=== PATIENT | female | born 1965 | race Caucasian/White ===

== ENCOUNTER → 2017-10-25 | Outpatient (CLI) | payer OTHER ==
[~2017-10-25] VITALS: Ht 167.6 cm; Wt 170.4 kg
[~2017-10-25] MED LIST: AMLO10 PO; CHLORHEXIDINE GLUCONATE 2 % 1 PACK (2 CLOTHS) TOPICAL PRN; DIPH25TA2 PO; DO NOT ADM ANY ANTICOAGULANT DRUGS PRN; LACTATED RINGER'S 1000 ML IV PRN; LOSA50TA PO; METOPROLOL TARTRATE 25 MG TAB PO PRN; POVIDONE IODINE 5% (ANTISEPSIS KIT) 4 APPLICATIONS EACH NARE PRN; SODIUM CHLORID 0.9% 500 ML IV PRN
[2017-10-25 11:02] LABS: AUTOMATED NEUTROPHIL # 5.9 TH/MM3 (1.8-7.7); BASOPHIL # 0.1 TH/MM3 (0-0.2); BASOPHIL % 0.6 % (0.0-2.0); EOSINOPHIL # 0.2 TH/MM3 (0-0.4); HEMATOCRIT 42.7 % (35.0-46.0); HEMO FLAGS DIFF FINAL; LYMPH % 27.5 % (9.0-44.0); LYMPHOCYTE # 2.6 TH/MM3 (1.0-4.8); MEAN CELL VOLUME 88.5 FL (80.0-100.0); MEAN CORPUSCULAR HGB CONC 32.8 % (32.0-36.0); MONO % 8.3 % (0.0-8.0); NEUT % 61.6 % (16.0-70.0); PLATELET COUNT 318 TH/MM3 (150-450); RED BLOOD COUNT 4.83 MIL/MM3 (4.00-5.30); RED CELL DISTRIBUTION WIDTH 14.2 % (11.6-17.2); WHITE BLOOD COUNT 9.6 TH/MM3 (4.0-11.0)
[2017-10-25 11:26] LABS: BICARBONATE 29.2 MEQ/L (21.0-32.0)
--- NOTE | 2017-10-25 13:34 | EKG ---
Date Performed: 10/25/2017 Time Performed: 10:29:04 PTAGE: 51 years EKG: Sinus rhythm NONSPECIFIC T-WAVE ABNORMALITY BORDERLINE ECG NO PREVIOUS TRACING DOCTOR: Alonzo De La Rosa Interpretating Date/Time 10/25/2017 13:33:42
--- NOTE | 2017-10-25 13:37 | GIPROC ---
[facility] [address] [facility]. [facility] [place], [id number] EGD PROCEDURE REPORT EXAM DATE: 10/25/2017 PATIENT NAME: Grace Dave MR #: [id number] BIRTHDATE: 1965 ATTENDING: Ulises Dorantes MD ORDER #: [id number] SEWAGE DISPOSAL WORKER: Diana Lakhani and Tim Sanchez STATUS: outpatient INDICATIONS: The patient is a 51 yr old female here for an EGD due to heartburn PROCEDURE PERFORMED: EGD w/ biopsy MEDICATIONS: None and Per Anesthesia. TOPICAL ANESTHETIC: none CONSENT: The patient understands the risks and benefits of the procedure and understands that these risks include, but are not limited to: sedation, allergic reaction, infection, perforation and/or bleeding. Alternative means of evaluation and treatment include, among others: physical exam, x-rays, and/or surgical intervention. The patient elects to proceed with this endoscopic procedure. medical equipment was checked for proper function. Hand hygiene and appropriate measures for infection prevention was taken. After the risks, benefits and alternatives of the procedure were thoroughly explained, Informed consent was verified, confirmed and timeout was successfully executed by the treatment team. The patient was anesthetized with topical anesthesia and the [employer] [id number] endoscope was introduced through the mouth and advanced to the second portion of the duodenum. Biopsy of antrum for gastritis and H. pylori. Retroflexed views revealed no abnormalities The gastroscope was then slowly withdrawn and removed. STOMACH: There was mild gastritis in the gastric body. ADVERSE EVENTS: There were no complications. IMPRESSIONS: 1. There was mild gastritis in the gastric body 2. Retroflexed views revealed no abnormalities RECOMMENDATIONS: Await biopsy results. Biopsy results will not be ready for 7-10 days. If you don't hear from us in two weeks, call our office for biopsy results. PATIENT CONDITION: fair DISPOSITION: Home REPEAT EXAM: NONE Ulises Dorantes MD eSigned: Ulises Dorantes MD 10/25/2017 1:36 PM cc: Ulises Dorantes MD
[2017-10-25 15:00] VITALS: BP 154/90; PULSE 89; RESP 20; TEMP 98.7; O2SAT 98
== END ==
LOC: HSDC 09:57
PROVIDERS: ATTEND Surgery
DX: R12 Heartburn (principal); K29.70 Gastritis, unspecified, without bleeding; R94.31 Abnormal electrocardiogram [ECG] [EKG]
CPT/HCPCS: 80048; 85025; 88305; 88312; 93005

== ENCOUNTER 2018-01-16 05:28 | Inpatient (IN) | payer SELFPAY ==
[~2018-01-16] VITALS: Ht 167.6 cm; Wt 168.9 kg
[~2018-01-16 05:28] MED LIST changes: -CHLORHEXIDINE GLUCONATE 2 % 1 PACK (2 CLOTHS) TOPICAL PRN; -DO NOT ADM ANY ANTICOAGULANT DRUGS PRN; -LACTATED RINGER'S 1000 ML IV PRN; -METOPROLOL TARTRATE 25 MG TAB PO PRN; -POVIDONE IODINE 5% (ANTISEPSIS KIT) 4 APPLICATIONS EACH NARE PRN; -SODIUM CHLORID 0.9% 500 ML IV PRN
[2018-01-16] MEDS ORDERED: POVIDONE IODINE 5% (ANTISEPSIS KIT) 4 APPLICATIONS EACH NARE PRN (06:15)
[2018-01-16] MEDS ORDERED: SCOPOLAMINE 1.5 MG PATCH T-DERMAL SCH (06:15)
[2018-01-16] MEDS ORDERED: ceFAZolin 2 GM PREMIX 50 ML IV SCH (06:15)
[2018-01-16] MEDS ORDERED: APREPITANT 40 MG CAP PO SCH (06:15)
[2018-01-16] MEDS ORDERED: ONDANSETRON HCL 4 MG/2 ML VIAL IV PUSH SCH (06:15)
[2018-01-16] MEDS ORDERED: SODIUM CHLORID 0.9% 500 ML IV PRN (06:15)
[2018-01-16] MEDS ORDERED: CHLORHEXIDINE GLUCONATE 2 % 1 PACK (2 CLOTHS) TOPICAL PRN (06:15)
[2018-01-16] MEDS ORDERED: METOPROLOL TARTRATE 25 MG TAB PO PRN (06:15)
[2018-01-16] MEDS ORDERED: LACTATED RINGER'S 1000 ML IV PRN (06:15)
[2018-01-16] MEDS ORDERED: ACETAMINOPHEN 1000 MG/100 ML 100 ML IV SCH (06:15)
[2018-01-16] MEDS ORDERED: metroNIDAZOLE 500 MG INJ 100 ML IV ONE (09:45)
[2018-01-16] MEDS ORDERED: BUPIVACAINE/EPINEPHRINE 0.25% 50 ML VIAL ONE (09:48)
--- NOTE | 2018-01-16 10:27 | HHI.PR ---
Immediate Post Op Note Procedure Date: Jan 16, 2018 Pre Op Diagnosis: morbid obesity, bmi 60, prasanth, htn, ra Post Op Diagnosis: same Surgeon: Ulises Dorantes MD [employer] Professor(s): Dr. Be Procedure: lap sleeve gastrectomy, 1st stage ds Findings: no leak Complications: none Specimen(s) removed: none Estimated blood loss: 5cc Anesthesia: General Drains: None Patient to: PACU Patient Condition: Good Ulises Dorantes MD Jan 16, 2018 10:27
[2018-01-16] MEDS ORDERED: diphenhydrAMINE HCL ELIXIR 12.5 MG/5 ML CUP PO PRN (11:45)
[2018-01-16] MEDS ORDERED: ONDANSETRON HCL 4 MG/2 ML VIAL IV PUSH PRN (11:45)
[2018-01-16] MEDS ORDERED: diphenhydrAMINE HCL 50 MG/ML VIAL IV PUSH PRN (11:45)
[2018-01-16] MEDS ORDERED: ENALAPRILAT 1.25 MG/ML VIAL IV PUSH PRN (11:45)
[2018-01-16] MEDS ORDERED: ACETAMINOPHEN 325MG/HYDROcodone 7.5MG/15ML UDC PO PRN ×2 (11:45)
[2018-01-16] MEDS ORDERED: SODIUM CHLORIDE 0.9% FLUSH 10 ML FLUSH IV FLUSH PRN (11:45)
[2018-01-16] MEDS ORDERED: Post-op Orders (for Pharmacy) OTHER ONE (11:45)
[2018-01-16] MEDS ORDERED: ePHEDrine/NS 25 MG/5 ML SYRINGE IV ONE (12:00)
[2018-01-16] MEDS ORDERED: ONDANSETRON HCL 4 MG/2 ML VIAL IV ONE (12:00)
[2018-01-16] MEDS ORDERED: DEXAMETHASONE SOD PHOS 4 MG/ML VIAL IV ONE (12:00)
[2018-01-16] MEDS ORDERED: SUCCINYLCHOLINE CHLORIDE 100 MG/5 ML SYRINGE IV PUSH ONE (12:00)
[2018-01-16] MEDS ORDERED: LIDOCAINE HCL 1% PF 5 ML SYRINGE OTHER ONE (12:00)
[2018-01-16] MEDS ORDERED: KETOROLAC TROMETHAMINE 30 MG/ML (IVP) VIAL IV PUSH ONE (12:00)
[2018-01-16] MEDS ORDERED: PROPOFOL 200 MG/20 ML AMP IV ONE (12:00)
[2018-01-16] MEDS ORDERED: NEOSTIGMINE 5 MG/5 ML SYRINGE IV PUSH ONE (12:00)
[2018-01-16] MEDS ORDERED: ceFAZolin INJ 1,000 MG VIAL IV ONE (12:00)
[2018-01-16] MEDS ORDERED: GLYCOPYRROLATE 1 MG/5 ML SYRINGE IV PUSH ONE (12:00)
[2018-01-16] MEDS ORDERED: ROCURONIUM INJ 50 MG/5 ML SYRINGE IV PUSH ONE (12:00)
[2018-01-16] MEDS ORDERED: PHENYLEPH/NS 1000 MCG/10 ML SYR IV ONE (12:00)
[2018-01-16] MEDS ORDERED: MORPHINE SULFATE 4 MG/ML INJ ONE (12:03)
[2018-01-16] MEDS ORDERED: *MEPERIDINE 25 MG INJ VIAL PERIprocedural Use ONLY ONE (12:06)
[2018-01-16] MEDS: METOCLOPRAMIDE HCL 10 MG/2 ML VIAL IV PUSH SCH ×3 (12:15→23:34)
[2018-01-16] MEDS ORDERED: MORPHINE SULFATE 30 MG/30 ML PCA ONE (12:21)
[2018-01-16] MEDS: D5-1/2 NS + KCL 20 MEQ INJ 1,000 ML IV SCH ×2 (12:44→23:20)
[2018-01-16] MEDS ORDERED: MORPHINE SULFATE 30 MG/30 ML PCA IV SCH (12:45)
[2018-01-16] MEDS ORDERED: NALOXONE HCL 0.4 MG/ML AMP IV PUSH PRN (12:45)
[2018-01-16] MEDS ORDERED: DO NOT ADM ANY ANTICOAGULANT DRUGS PRN (12:45)
[2018-01-16] MEDS: SODIUM CHLORIDE 0.9% FLUSH 10 ML FLUSH IV FLUSH SCH ×2 (12:46→23:19)
[2018-01-16] MEDS: PANTOPRAZOLE SOD 40 MG DELAYED RELEASE TAB PO SCH (13:00)
[2018-01-16] MEDS ORDERED: *ENALAPRILAT 1.25 MG/ML VIAL PERIprocedural Use ONLY ONE (13:15)
[2018-01-16] MEDS: ACETAMINOPHEN 1000 MG/100 ML 100 ML IV SCH ×3 (13:21→23:33)
--- NOTE | 2018-01-16 14:57 | MP ---
cc: Ulises Dorantes MD DATE OF OPERATION: 01/16/2018 PREOPERATIVE DIAGNOSIS: Morbid obesity, body mass index of 60, obstructive sleep apnea, rheumatoid arthritis, hypertension. POSTOPERATIVE DIAGNOSIS: Morbid obesity, body mass index of 60, obstructive sleep apnea, rheumatoid arthritis, hypertension. PROCEDURE PERFORMED: Laparoscopic sleeve gastrectomy over a 36 ViSiGi bougie, first stage of duodenal switch. SURGEON: Ulises Dorantes MD OCCUPATIONAL HEALTH NURSE SUPERVISOR: Misty. ANESTHESIA: GETA. INTRAVENOUS FLUIDS: See anesthesia sheet. ESTIMATED BLOOD LOSS: 15 mL. DRAINS: None. COMPLICATIONS: None. WOUND CLASSIFICATION: Clean, contaminated. SPECIMENS: None. FINDINGS: No leak with methylene blue. INDICATION: Patient is a 52-year-old female who presents with multiple attempts at weight loss without success. Patient of BMI of initially 67. She did lose some weight on her own with current BMI at 60 with multiple comorbidities including sleep apnea, hypertension, arthritis. Decision was made for laparoscopic bariatric surgery. DETAILS OF PROCEDURE: Patient was taken to the operating suite, placed in the supine position. She was prepped and draped in the usual sterile fashion after induction of general endotracheal anesthesia. A brief timeout done stating correct patient, procedure and surgical site. We were all in agreement with this. Attention first directed to a point 15 cm distal to the xiphoid. Local anesthetic used, stab gallo incision made. A 5 mm Optiview port was done under direct visualization. Pneumoperitoneum was created. On cursory inspection, no evidence of injury. Several other trocars placed including 5 mm left lower quadrant trocar followed by a 15 mm right lower quadrant trocar and a 5 mm right upper quadrant trocar. This was done for liver retraction. Local injected at all port sites. Patient was placed in reverse Trendelenburg, and airplaned to the right. A carlos-flex retractor was placed in order to retract the left lobe of the liver. On inspection, there was noted to be a somewhat sizeable stomach. The greater curvature of the stomach was taken down with the Harmonic scalpel, 5 cm proximal to the pylorus, all the way up to the angle of His. The posterior ligamentous attachments were minimally taken down. Next, the advancement of a 36 [place] ViSiGi bougie was done. ViSiGi bougie was advanced down to the pylorus and placed on suction. The stomach was divided creating a sleeve gastrectomy under the calibration device in order to remove approximately 80% of the stomach. The sleeve was started 5 cm from the pylorus, carried all the way up to the angle of His. This was done using Endo JEFF stapler, [place] initial black load, followed by green and gold loads. They were all Seamguard reinforced. This was done taking a distance 2 cm from the angle incisura, the staple line and 1 cm from the GE junction. Next, methylene blue was instilled, 60 mL x 2, without evidence of leaking. The bougie was then removed. Everything noted to be hemostatic. Evicel was then placed. The sleeve gastrectomy stomach was removed from the 15 mm right lower quadrant port. Fascia was closed with a suture passer device with 0 Vicryl. The trocars were removed. Pneumoperitoneum was removed. A 4-0 Monocryl was used for all subcuticular sutures. Sterile dressings then placed including Mastisol and Steri-Strips. The patient tolerated the procedure well. There were no intraoperative complications. All lap and instrument counts correct at the end of the procedure. The patient was extubated and taken stable to the PACU. MD ZIA Friedman/GINNA , 02:06 PM , 02:55 PM ALE
[2018-01-16] MEDS: ENOXAPARIN SODIUM 40 MG/0.4 ML SYRINGE SQ SCH (15:30)
[2018-01-16] MEDS: PCA - TOTAL MG MORPHINE DELIVERED PER SHIFT SCH ×2 (16:38→22:00)
[2018-01-16] MEDS: metroNIDAZOLE 500 MG INJ 100 ML IV SCH (18:28)
[2018-01-16 20:00] VITALS: BP 136/75; PULSE 96; RESP 18; TEMP 98.2; O2SAT 95
[2018-01-17] VITALS: BP 142/73; PULSE 91; RESP 18; TEMP 96.9; O2SAT 94
[2018-01-17] MEDS: metroNIDAZOLE 500 MG INJ 100 ML IV SCH ×2 (02:44→08:56)
[2018-01-17 04:00] VITALS: BP 173/77; PULSE 88; RESP 18; TEMP 96.6; O2SAT 93
[2018-01-17] MEDS: PCA - TOTAL MG MORPHINE DELIVERED PER SHIFT SCH (06:00)
[2018-01-17] MEDS: METOCLOPRAMIDE HCL 10 MG/2 ML VIAL IV PUSH SCH (06:20)
[2018-01-17] MEDS: D5-1/2 NS + KCL 20 MEQ INJ 1,000 ML IV SCH ×2 (06:21→11:39)
[2018-01-17] MEDS: ACETAMINOPHEN 1000 MG/100 ML 100 ML IV SCH (06:22)
[2018-01-17 07:51] LABS: BICARBONATE 22.1 MEQ/L (21.0-32.0); CALCIUM 8.5 MG/DL (8.5-10.1); CREATININE 0.61 MG/DL (0.50-1.00); MAGNESIUM 2.2 MG/DL (1.5-2.5)
[2018-01-17 08:00] VITALS: BP 136/73; PULSE 86; RESP 17; TEMP 96.2; O2SAT 96
[2018-01-17 08:11] LABS: AUTOMATED NEUTROPHIL # 10.6 TH/MM3 (1.8-7.7); BASOPHIL % 0.2 % (0.0-2.0); EOSINOPHIL % 0.1 % (0.0-4.0); HEMATOCRIT 41.5 % (35.0-46.0); HEMOGLOBIN 13.6 GM/DL (11.6-15.3); LYMPHOCYTE # 1.8 TH/MM3 (1.0-4.8); MEAN CELL VOLUME 90.9 FL (80.0-100.0); MEAN CORPUSCULAR HEMOGLOBIN 29.8 PG (27.0-34.0); MEAN CORPUSCULAR HGB CONC 32.8 % (32.0-36.0); MEAN PLATELET VOLUME 7.9 FL (7.0-11.0); MONOCYTE # 1.2 TH/MM3 (0-0.9); NEUT % 77.7 % (16.0-70.0); PLATELET COUNT 257 TH/MM3 (150-450); RED BLOOD COUNT 4.57 MIL/MM3 (4.00-5.30); RED CELL DISTRIBUTION WIDTH 14.4 % (11.6-17.2); WHITE BLOOD COUNT 13.7 TH/MM3 (4.0-11.0)
[2018-01-17 08:25] VITALS: O2SAT 95
[2018-01-17] MEDS: PANTOPRAZOLE SOD 40 MG DELAYED RELEASE TAB PO SCH (08:48)
[2018-01-17] MEDS: SODIUM CHLORIDE 0.9% FLUSH 10 ML FLUSH IV FLUSH SCH (08:56)
[2018-01-17] MEDS ORDERED: LOSARTAN 50 MG TAB PO SCH (09:00)
[2018-01-17] MEDS ORDERED: METOCLOPRAMIDE HCL 10 MG/2 ML VIAL IV PUSH PRN (11:45)
[2018-01-17 12:00] VITALS: BP 129/76; PULSE 83; RESP 17; TEMP 96.1; O2SAT 97
--- NOTE | 2018-01-17 12:08 | HHI.PR ---
Subjective Subjective Notes No GI complaints Tolerating PO fluids Objective Vitals/I&O Vital Signs Date Time Temp Pulse Resp B/P (MAP) Pulse Ox O2 Delivery O2 Flow Rate FiO2 01/17/18 08:25 95 Nasal Cannula 3.00 01/17/18 08:00 96.2 86 17 136/73 (94) Labs Laboratory Tests Test 01/17/18 06:44 White Blood Count 13.7 Red Blood Count 4.57 Hemoglobin 13.6 Hematocrit 41.5 Mean Corpuscular Volume 90.9 Mean Corpuscular Hemoglobin 29.8 Mean Corpuscular Hemoglobin Concent 32.8 Red Cell Distribution Width 14.4 Platelet Count 257 Mean Platelet Volume 7.9 Neutrophils (%) (Auto) 77.7 Lymphocytes (%) (Auto) 13.0 Monocytes (%) (Auto) 9.0 Eosinophils (%) (Auto) 0.1 Basophils (%) (Auto) 0.2 Neutrophils # (Auto) 10.6 Lymphocytes # (Auto) 1.8 Monocytes # (Auto) 1.2 Eosinophils # (Auto) 0.0 Basophils # (Auto) 0.0 CBC Comment DIFF FINAL Differential Comment Hematology Comments Blood Urea Nitrogen 9 Creatinine 0.61 Random Glucose 124 Calcium Level 8.5 Magnesium Level 2.2 Sodium Level 136 Potassium Level 4.8 Chloride Level 104 Carbon Dioxide Level 22.1 Anion Gap 10 Estimat Glomerular Filtration Rate 104 Cardiovascular: Regular Lungs: Clear Abdomen: Post-op tenderness Extremities: Perfused Wound Wound : Wound Location: Abdomen Appearance: Clean & Dry A/P Assessment and Plan 52yo F POD#1 laparoscopic VSG -D/C IV pain meds, transition to oral pain control -Continue with frequent ambulation, will get binder to help minimize discomfort -Continue to increase fluids as tolerated Discharge Planning D/C home most likely Attending Statement patient seen at bedside pt is doing very well she is taking adequate po intake d/c planning today Attestation The exam, history, and the medical decision-making described in the above note were completed with the assistance of the mid-level provider. I reviewed and agree with the findings presented. I attest that I had a [id number] encounter with the patient on the same day, and personally performed and documented my assessment and findings in the medical record. Zeynep Infante Jan 17, 2018 12:08 Ulises Dorantes MD Jan 21, 2018 10:59
[2018-01-17] MEDS: ENOXAPARIN SODIUM 40 MG/0.4 ML SYRINGE SQ SCH (15:16)
[2018-01-17 16:00] VITALS: BP 134/89; PULSE 88; RESP 17; TEMP 96.9; O2SAT 96
== END 2018-01-17 17:14 | disposition home or self-care (01) | DRG 621 ==
LOC: HSDI 05:28 → N07B 17:34
PROVIDERS: ADMIT Surgery; ATTEND Surgery
PROC: 0DB64Z3 Excision of Stomach, Percutaneous Endoscopic Approach, Vertical (ICD-10-PCS; principal; 2018-01-16 09:59)
DX: E66.01 Morbid (severe) obesity due to excess calories (principal); I10 Essential (primary) hypertension; G47.33 Obstructive sleep apnea (adult) (pediatric); Z68.44 Body mass index [BMI] 60.0-69.9, adult; R60.0 Localized edema; R73.9 Hyperglycemia, unspecified; K21.9 Gastro-esophageal reflux disease without esophagitis; E55.9 Vitamin D deficiency, unspecified; F41.9 Anxiety disorder, unspecified; M06.9 Rheumatoid arthritis, unspecified; M19.90 Unspecified osteoarthritis, unspecified site
CPT/HCPCS: 80048; 83735; 85025; 94150; J0131; J0330; J0690; J1100; J1650; J1885; J2175; J2270; J2370; J2405; J2710; J2765; J3010; J3480; J7120; J8501